=== PATIENT | female | born 2000 | race African-American/Black ===

== ENCOUNTER 2019-04-10 17:21 | Emergency (ER) | payer OTHER ==
[2019-04-10 18:46] VITALS: BP 110/58; PULSE 90; TEMP 98.2; BMI 17.7
== END 2019-04-10 19:10 | disposition left against medical advice (07) ==
LOC: JER 17:21
DX: Z53.21 Procedure and treatment not carried out due to patient leaving prior to being seen by health care provider (principal)
CPT/HCPCS: 99281-25